=== PATIENT | male | born 1950 | race Caucasian/White ===

== ENCOUNTER 2019-03-11 13:07 | Outpatient (CLI) | payer MEDICARE, OTHER ==
--- NOTE | 2019-03-11 13:55 | RAD ---
RIGHT HIP TWO VIEWS: HISTORY: Right hip pain. FINDINGS: Joint space is preserved. There is mild osteophytosis and subchondral sclerosis. Femoral head conto ur is maintained. No acute fracture or dislocation. IMPRESSION: Very mild osteoarthritic changes of the right hip. POS: [facility]
--- NOTE | 2019-03-11 13:56 | RAD ---
RIGHT KNEE FOUR VIEWS: HISTORY: Unspecified osteoarthritis. Right knee pain. FINDINGS: No fracture, dislocation, or bony destruction is seen. Minimal arthritic changes are noted. No join t effusion is seen. POS: [facility]
== END 2019-03-11 13:08 | disposition home or self-care (01) ==
LOC: BICRAD 13:07
PROVIDERS: ATTEND Internal Medicine
DX: M16.11 Unilateral primary osteoarthritis, right hip (principal); M17.11 Unilateral primary osteoarthritis, right knee

== ENCOUNTER 2020-06-30 19:38 | Inpatient (IN) | payer MEDICARE, OTHER ==
[~2020-06-30 19:38] MED LIST: Iopamidol-370 76% 500 ML 1 ML ONE
[2020-06-30] MEDS ORDERED: Ondansetron ODT 4 MG TAB ONE (20:29)
[2020-06-30 21:06] LABS: Bilirubin Negative (Negative); Blood, Urine Negative (Negative); Clarity Clear (Clear); Glucose, Urine (Dipstick) 100 mg/dL (Negative); Ketone, Urine 100 mg/dL (Negative); Leukocyte Negative Leu/uL (Negative); Nitrite Negative (Negative); Protein, Urine (Dipstick) 20 mg/dL (Neg-Trace); Specific Gravity, Urine 1.018 (1.002-1.036); Urobilinogen Normal mg/dL (Less than 2); pH, Urine 5.5 (5.0-9.0)
[2020-06-30 21:13] LABS: ALT (SGPT) 44 U/L (8-55); AST (SGOT) 37 U/L (5-34); Albumin 4.6 g/dL (3.4-4.8); Alkaline Phosphatase 74 U/L (40-110); Anion Gap 17 mmol/L (10-20); BUN (Urea Nitrogen) 18 mg/dL (8.4-25.7); Bilirubin, Total 1.6 mg/dL (0.2-1.2); Calc. Creatinine Clearance 0 mL/min (70-130); Calcium 9.4 mg/dL (7.8-10.44); Carbon Dioxide 20 mmol/L (23-31); Chloride 109 mmol/L (98-107); Estimated GFR-MDRD 60; Globulin 2.6 g/dL (2.4-3.5); Glucose 219 mg/dL (80-115); Potassium 4.1 mmol/L (3.5-5.1); Protein, Total 7.2 g/dL (5.8-8.1); Sodium 142 mmol/L (136-145)
[2020-06-30 21:17] LABS: #Lymphocytes 0.4 thou/uL (1.20-3.40); #Monocytes 0.5 thou/uL (0.11-0.59); #Neutrophils 13.5 thou/uL (1.40-6.50); %Basophils 0.1 % (0.0-1.0); %Eosinophils 0.2 % (0.0-10.0); %Lymphocytes 2.9 % (21.0-51.0); %Monocytes 3.4 % (0.0-10.0); %Neutrophils 93.6 % (42.0-75.0); Hemoglobin 15.5 g/dL (14.0-18.0); Large Platelets SLIGHT; MDiff Complete? YES; Mean Corpuscular HGB CONC 34.7 g/dL (32.0-36.0); Mean Corpuscular Hemoglobin 32.3 pg (27.0-31.0); Mean Corpuscular Volume 93.3 fL (78.0-98.0); Platelet Count 36 thou/uL (130-400); Platelet Morphology Comment Appears Decreased; RBC Distribution Width 12.1 % (11.5-14.5); Red Blood Cell (RBC) Count 4.78 mill/uL (4.70-6.10); White Blood Cell (WBC) Count 14.4 thou/uL (4.8-10.8)
[2020-07-01] MEDS ORDERED: Ondansetron PF 4 MG/2 ML Vial ONE ×2 (00:13→13:20)
[2020-07-01] MEDS ORDERED: Piperacillin/Tazobactam 4.5 GM VIAL ONE (00:13)
[2020-07-01] MEDS ORDERED: Morphine 4 MG/ML VIAL ONE (00:13)
[2020-07-01 04:05] VITALS: BMI 25.3
[2020-07-01] MEDS ORDERED: Ondansetron PF 4 MG/2 ML Vial IVP PRN ×2 (05:57→18:57)
[2020-07-01] MEDS: D5 1/2 NS w/20 mEq KCL 1,000 ML IV SCH ×3 (06:21→21:36)
[2020-07-01 06:28] LABS: INR-International Normal Ratio 1.1; PTT 26.8 sec (22.9-36.1); Prothrombin Time 14.5 sec (12.0-14.7)
[2020-07-01 06:34] LABS: #Lymphocytes 0.8 thou/uL (1.20-3.40); #Monocytes 1.2 thou/uL (0.11-0.59); #Neutrophils 13.1 thou/uL (1.40-6.50); %Eosinophils 0.1 % (0.0-10.0); %Lymphocytes 5.4 % (21.0-51.0); %Monocytes 7.8 % (0.0-10.0); %Neutrophils 86.7 % (42.0-75.0); Hemoglobin 14.1 g/dL (14.0-18.0); Mean Corpuscular HGB CONC 32.8 g/dL (32.0-36.0); Mean Corpuscular Hemoglobin 30.9 pg (27.0-31.0); Mean Corpuscular Volume 94.1 fL (78.0-98.0); Mean Platelet Volume 11.4 fL (7.4-10.4); Platelet Count 48 thou/uL (130-400); RBC Distribution Width 12.3 % (11.5-14.5); Red Blood Cell (RBC) Count 4.55 mill/uL (4.70-6.10); White Blood Cell (WBC) Count 15.2 thou/uL (4.8-10.8)
[2020-07-01 06:43] LABS: ALT (SGPT) 36 U/L (8-55); AST (SGOT) 26 U/L (5-34); Alkaline Phosphatase 57 U/L (40-110); Anion Gap 14 mmol/L (10-20); BUN (Urea Nitrogen) 17 mg/dL (8.4-25.7); Bilirubin, Total 0.9 mg/dL (0.2-1.2); Calc. Creatinine Clearance 69 mL/min (70-130); Calcium 8.4 mg/dL (7.8-10.44); Carbon Dioxide 21 mmol/L (23-31); Chloride 110 mmol/L (98-107); Estimated GFR-MDRD 67; Globulin 2.3 g/dL (2.4-3.5); Glucose 121 mg/dL (80-115); Potassium 4.1 mmol/L (3.5-5.1); Protein, Total 6.3 g/dL (5.8-8.1); Sodium 141 mmol/L (136-145)
--- NOTE | 2020-07-01 07:40 | CT ---
CT ABODMEN AND PELVIS WITH IV CONTRAST: Date: 06/30/2020 PROVIDED CLINICAL HISTORY: Abdominal pain. FINDINGS: The visualized lung bases are free of significant opacity. The liver, spleen, pancreas, kidneys, and adrenal glands demonstrate no significant abnormality. There is conspicuous gallbladder distention with pericholecystic inflammatory change and a small amou nt of pericholecystic fluid. There is no bowel dilatation, additional inflammatory fat stranding, free fluid, or free air apparent . There is no evidence for appendicitis. Vascular calcifications and atherosclerotic renal plaque are seen involving the abdominal aorta. Fat- containing left inguinal hernia, small. The osseous structures demonstrate no concerning lytic or blastic lesions. IMPRESSION: Findings compatible with acute cholecystitis. POS: [facility]
--- NOTE | 2020-07-01 08:36 | ULT ---
PRELIMINARY REPORT/[facility]/EMERGENCY AFTER HOURS PROCEDURE Receipt of this report by the clinical staff was confirmed with Taylor Yang RN by Nany Driver on Jul 01, 2020 01:21:00 CDT. Addendum electronically signed by Nany Driver on July 01, 2020 1:20:10 AM CDT EXAM: US Abdomen Limited, Right Upper Quadrant. CLINICAL HISTORY: HX: ABD PAIN, SEE NOTES ON LAST IMAGE. THANKS TECHNIQUE: Real-time ultrasound of the right upper quadrant with image documentation. COMPARISON: None provided. FINDINGS: LIVER: Unremarkable. GALLBLADDER: No gallstone. Gallbladder wall thickening is noted at 4.7 mm. No pericholecystic fluid. The patient demonstrated a positive sonographic Smith's sign COMMON BILE DUCT: No dilation. Measures 5.8 mm PANCREAS: Obscured by overlying bowel gas. RIGHT KIDNEY: Unremarkable. No hydronephrosis. Measures 9.6 cm IMPRESSION: Gallbladder wall thickening with a positive sonographic Smith's sign concerning for acalculous nilam cystitis ELECTRONICALLY SIGNED BY: Oren Gregory MD Jul 01, 2020 1:17:04 AM CDT This report is intended for review by the ordering physician only, in accordance of law. If you recei ve this report in error, please call [facility] at [phone]. FINAL REPORT EXAM: US Gallbladder RUQ CLINICAL HISTORY: Right upper quadrant pain.. COMPARISON: None. FINDINGS: Pancreas: Obscured by bowel gas Liver:Hepatic parenchyma has a normal echotexture. No hepatic masses or intrahepatic biliary dilatati on. Gallbladder: No sonographic evidence of cholelithiasis. Gallbladder wall is thickened measuring 0.47 cm. Smith's sign:Positive Portal Vein: Patent. Appropriate directional flow Bile ducts: 0.6 cm common bile duct diameter Right kidney: No hydronephrosis. Right kidney measures 9.7 cm in length. IMPRESSION: 1. Gallbladder wall thickening with positive Smith's sign. Correlate for acalculous cholecystitis. 2. Consider HIDA scan. 3. This report is in agreement with initial report by [facility]. Transcribed Date/Time: 07/01/2020 9:00 AM
[2020-07-01] MEDS ORDERED: EPHEDRINE 25 MG/5 ML SYRINGE ONE (13:20)
[2020-07-01] MEDS ORDERED: Glycopyrrolate 0.2 MG/ML 5 ML SYRINGE ONE (13:20)
[2020-07-01] MEDS ORDERED: Dexamethasone 20 MG/5 ML VIAL ONE (13:20)
[2020-07-01] MEDS ORDERED: Rocuronium Bromide 10 MG/ML (10ML VIAL) ONE (13:20)
[2020-07-01] MEDS: Piperacillin/Tazobactam 3.375 GM in Sodium Chloride 0.9% 100 ML IVPB SCH ×2 (13:20→19:58)
[2020-07-01] MEDS ORDERED: PROPOFOL 200 MG/20 ML VIAL ONE (13:20)
[2020-07-01] MEDS ORDERED: Lidocaine 1% PF 5 ML VIAL ONE (13:20)
[2020-07-01 13:46] LABS: SARS-CoV-2 MS2 Positive; SARS-CoV-2 N Gene Negative; SARS-CoV-2 S Gene Negative; SARS-CoV-2 by NAA Not Detected (NotDetected); SARS-CoV-2 orf1ab Negative
--- NOTE | 2020-07-01 14:03 | HP ---
CHIEF COMPLAINT: Abdominal pain. HISTORY OF PRESENT ILLNESS: Mr. Kulkanri is a 69-year-old man who presented to the emergency room with epigastric pain and nausea beginning yesterday morning. He states that about an hour after eating breakfast, he had pain across the top of his abdomen and multiple episodes of nonbloody, [id number] emesis. The pain has been persistent. No exacerbating or alleviating factors are reported. He denies any shortness of breath, diarrhea or constipation. Has not had any fevers, chills, jaundice or icterus. He came to the emergency room where he was found to have diffuse abdominal tenderness, worse in the right upper quadrant and epigastrium. He underwent a CT of the abdomen and pelvis, which showed distention of the gallbladder with some pericholecystic fluid, but no bile duct dilatation. On ultrasound, did not show any gallstones, but the gallbladder wall was noted to be thickened and he had a positive sonographic Smith sign. He was placed on IV antibiotics and admitted for short interval cholecystectomy. PAST MEDICAL HISTORY: Hyperlipidemia, atrial flutter, chronic thrombocytopenia, hypertension, hypothyroidism, and BPH. He does not have any history of purpura or bleeding related to his thrombocytopenia and this is just being followed by Dr. Arambula. PAST SURGICAL HISTORY: Bilateral inguinal hernia repairs, but no abdominal surgeries. He has also had his tonsils out and back procedure. SOCIAL HISTORY: The patient quit smoking many years ago. Does not drink or use illicit drugs. ALLERGIES: HE HAS NO KNOWN DRUG ALLERGIES. OUTPATIENT MEDICATIONS: Include; 1. Omeprazole 20 mg p.o. daily. 2. Tamsulosin 0.4 mg p.o. daily. 3. Synthroid 25 mcg p.o. daily. 4. Metoprolol 12.5 mg p.o. b.i.d. 5. Meclizine 25 mg p.o. daily. 6. Finasteride 5 mg p.o. daily. 7. Crestor 10 mg p.o. daily. 8. Lexapro 10 mg p.o. daily. REVIEW OF SYSTEMS: Ten system review of systems is negative except per HPI. He specifically denies chest pain or shortness of breath. CT and ultrasound images are reviewed and I agree with the written report. LABORATORY DATA: White count is elevated at 15.2, hematocrit 42.8, platelet count 48, which is close to his baseline. Coags are normal. Electrolytes are unremarkable. His total bilirubin was initially elevated at 1.6, but has come down to 0.9. AST was mildly elevated at 37, but has come down to 26. The rest of his LFTs were normal and his lipase was low. PHYSICAL EXAMINATION: VITAL SIGNS: The patient has been afebrile since admission. Heart rate 63, respirations 16, 97% saturated on room air, blood pressure 107/64. GENERAL: Reveals a healthy-appearing gentleman in no acute distress. He is not flushed or toxic in appearance. He is not jaundiced or icteric. HEENT: Unremarkable. Pupils are equal. Extraocular movements are intact and facial movements are symmetric. NECK: Supple without lymphadenopathy or thyroid nodules. HEART: Regular in its rate and rhythm without murmurs, rubs, or gallops. LUNGS: Clear to auscultation bilaterally. ABDOMEN: Soft and nondistended. He is tender to palpation in the right upper quadrant greater than epigastrium, but does not exhibit rigidity, rebound, or guarding. He has a small reducible umbilical hernia which is nontender and has a fingertip sized fascial defect. EXTREMITIES: Warm and well perfused without edema. No ulcerations or ischemia. NEUROLOGIC: No focal deficits. PSYCHIATRIC: Alert, oriented, and appropriate with a normal affect. ASSESSMENT: Acalculous cholecystitis with mild elevation in bilirubin on admission, which has come down to normal. I cannot discount the possibility of a small stone, which he has passed. I have recommended laparoscopic cholecystectomy with intraoperative cholangiogram to remove the gallbladder and evaluate the common bile duct. If there is any obstruction of the common bile duct, he might require ERCP postoperatively. The inherent risks of laparoscopic cholecystectomy were discussed with the patient. These include, but are not limited to, bleeding, infection, risks of anesthesia, damage to nearby structures including bowel, liver, and bile duct, need for other procedures and need for open surgery. He understands and accepts these risks and wishes to proceed. All of his questions were answered. Job ID: [id number]
[2020-07-01] MEDS ORDERED: Iothalamate Meglumine 60% 50 ML VIAL FS ONE (15:29)
[2020-07-01] MEDS ORDERED: Lidocaine 2% w/Epinephrine 1:200K 20 ML VIAL ONE (15:29)
[2020-07-01] MEDS ORDERED: Bupivacaine 0.25% HCL 30 ML VIAL ONE (15:29)
[2020-07-01] MEDS ORDERED: Lidocaine 1% w/Epinephrine 1:100K 20 ML VIAL ONE (15:29)
[2020-07-01] MEDS ORDERED: Fentanyl 100 MCG/2 ML VIAL ONE ×2 (15:41→18:10)
[2020-07-01] MEDS ORDERED: Piperacillin/Tazobactam 3.375 GM VIAL ONE (17:39)
[2020-07-01] MEDS ORDERED: Promethazine HCl 25 MG/ML VIAL SLOW IVP PRN (18:43)
[2020-07-01] MEDS ORDERED: Ondansetron HCl/PF 4 MG/2 ML Vial IVP PRN (18:43)
[2020-07-01] MEDS ORDERED: Promethazine HCl 25 MG/ML VIAL IM PRN (18:43)
[2020-07-01] MEDS ORDERED: HYDROcodone/Acetaminophen 5/325 mg Tablet PO PRN ×2 (18:56)
[2020-07-01] MEDS ORDERED: Morphine 4 MG/ML VIAL SLOW IVP PRN (18:56)
[2020-07-01] MEDS ORDERED: traMADol HCl 50 MG TAB PO PRN ×2 (18:56)
--- NOTE | 2020-07-01 20:13 | PDOC.OP ---
Operative Note - Operative Note Operative Note: DATE OF PROCEDURE: 07/01/2020 PROCEDURES: Laparoscopic cholecystectomy with intraoperative cholangiogram and repair of umbilical hernia. SURGEON: Ruby Yepez M.D. PREOPERATIVE DIAGNOSIS: Acalculous cholecystitis, umbilical hernia POSTOPERATIVE DIAGNOSIS: Acalculous cholecystitis, gangrenous, and umbilical hernia FINDINGS: Gangrenous gallbladder with acute omental adhesions. Very small cystic duct. Cholangiogram with some irregularity of the distal common bile duct but no filling defect or obstruction to flow. Small umbilical hernia containing preperitoneal fat only. HISTORY: Patient with signs and symptoms of acute cholecystitis.. Laparoscopic cholecystectomy was recommended for symptomatic relief and prevention of future episodes. Intraoperative cholangiogram was also recommended due to transient elevation of bilirubin. PROCEDURE: After informed consent was obtained and appropriate preoperative antibiotics were administered, the patient was taken to the operating room and placed in the supine position and general endotracheal anesthesia was administered. The stomach was decompressed with an OG tube and the abdomen was prepped and draped in standard sterile fashion. Local anesthesia was infused to the skin and subcutaneous tissues at the umbilical level. A transverse skin incision was made. Dissection was carried down to the umbilical hernia which was dissected free circumferentially to the level of the fascia. This was found to contain preperitoneal fat only which was excised. Stay sutures were placed in the fascia. The fascia was elevated and a Veress needle was placed into the abdominal cavity without difficulty. Opening pressure was less than 5 and carbon dioxide gas easily insufflated to an intra-abdominal pressure of 15, which the patient tolerated well. The Veress needle was withdrawn and a [place] port advanced under direct vision. The abdominal cavity was carefully examined. There was no evidence of Veress needle or of trocar injury. Local anesthesia was infused to the skin and subcutaneous tissues at the epigastric, right upper quadrant, and right lateral abdominal sites and trocars were placed under direct vision of the laparoscope. The gallbladder was noted to be gangrenous in appearance. The fundus of the gallbladder was grasped and retracted superiorly. Acute omental adhesions were stripped off of the gallbladder through the avascular plane exposing the infundibulum. The infundibulum was grasped and retracted laterally. The serosa was stripped inferiorly at the level of the neck of the gallbladder exposing the cystic duct and artery which were traced clearly to their insertion in the gallbladder. These were dissected free circumferentially and the cystic duct was clipped at the level of the neck of the gallbladder. The cystic artery was clipped but not divided. An incision was made in the cystic duct inferior to the clip and the cystic duct was palpated with no stones palpable. Clear bile was seen to flow from the cystic duct incision. A cholangiogram catheter was introduced and placed into the cystic duct and secured with a clip. A cholangiogram was obtained which showed an adequate length of cystic duct. There was normal filling of the common bile duct but very little flow of contrast into the duodenum. Glucagon was administered and the duct was flushed with saline. A second cholangiogram was obtained which showed free flow of contrast into the duodenum. The distal common bile duct was very narrow and somewhat irregular but there was no apparent filling defect or obstruction to flow. There was normal retrograde flow into the common hepatic duct beyond the level of the bifurcation without filling defects. The cholangiogram catheter was removed and the cystic duct clipped below the incision in the cystic duct. The cystic duct was divided between these clips and the previously placed clip. The cystic artery was clipped and divided between the previously placed clips. The gallbladder was then dissected free of the gallbladder bed using hook electrocautery. Prior to complete removal of the gallbladder from the gallbladder bed, the area of the cystic duct and artery stumps was examined. The clips were in good position completely across these structures and there was no bleeding and no leakage of bile. The gallbladder was then placed into an EndoCatch bag and drawn out through the epigastric incision. The epigastric trocar was replaced and the operative site easily irrigated to clear. There was no significant bleeding or spillage of bile, but due to the heavily inflamed nature of the gangrenous gallbladder and the patient's history of thrombocytopenia Jono was placed to the gallbladder bed as a precaution. The epigastric trocar was removed and the fascia closed under direct laparoscopic vision with a 0 Vicryl suture on a GraNee needle in a [id number] manner with excellent technical result. The right upper quadrant and right lateral abdominal trocars were removed and hemostasis verified. Carbon dioxide gas was allowed to desufflate through the umbilical trocar which was then removed. The fascia at the umbilicus was closed with the previously placed stay sutures with excellent technical result. Additional local anesthesia was infused for postoperative pain control and the skin incisions were closed with 4-0 subcuticular Monocryl sutures and Dermabond dressings were placed. The patient was extubated and taken to the recovery room in good condition. There were no complications. ESTIMATED BLOOD LOSS: Minimal. SPECIMEN : Gallbladder and contents.
[2020-07-01] MEDS: Morphine 2 MG/ML VIAL SLOW IVP PRN (21:35)
[2020-07-02] MEDS: Piperacillin/Tazobactam 3.375 GM in Sodium Chloride 0.9% 100 ML IVPB SCH ×3 (00:36→15:12)
[2020-07-02 03:58] LABS: #Lymphocytes 0.3 thou/uL (1.20-3.40); #Monocytes 0.6 thou/uL (0.11-0.59); %Basophils 0.1 % (0.0-1.0); %Eosinophils 0.1 % (0.0-10.0); %Lymphocytes 3.1 % (21.0-51.0); %Monocytes 5.9 % (0.0-10.0); %Neutrophils 90.8 % (42.0-75.0); Hemoglobin 13.8 g/dL (14.0-18.0); Mean Corpuscular HGB CONC 33.3 g/dL (32.0-36.0); Mean Corpuscular Hemoglobin 31.5 pg (27.0-31.0); Mean Corpuscular Volume 94.6 fL (78.0-98.0); Mean Platelet Volume 10.7 fL (7.4-10.4); Platelet Count 66 thou/uL (130-400); RBC Distribution Width 11.9 % (11.5-14.5); Red Blood Cell (RBC) Count 4.37 mill/uL (4.70-6.10); White Blood Cell (WBC) Count 9.9 thou/uL (4.8-10.8)
[2020-07-02] MEDS: Morphine 2 MG/ML VIAL SLOW IVP PRN (06:14)
[2020-07-02] MEDS: D5 1/2 NS w/20 mEq KCL 1,000 ML IV SCH ×2 (06:15→15:36)
[2020-07-02 07:04] LABS: ALT (SGPT) 329 U/L (8-55); AST (SGOT) 282 U/L (5-34); Albumin 3.8 g/dL (3.4-4.8); Alkaline Phosphatase 91 U/L (40-110); Anion Gap 12 mmol/L (10-20); BUN (Urea Nitrogen) 14 mg/dL (8.4-25.7); Bilirubin, Total 2.3 mg/dL (0.2-1.2); Calc. Creatinine Clearance 68 mL/min (70-130); Calcium 8.5 mg/dL (7.8-10.44); Carbon Dioxide 21 mmol/L (23-31); Chloride 109 mmol/L (98-107); Estimated GFR-MDRD 65; Globulin 2.6 g/dL (2.4-3.5); Glucose 191 mg/dL (80-115); Potassium 4.3 mmol/L (3.5-5.1); Protein, Total 6.4 g/dL (5.8-8.1); Sodium 138 mmol/L (136-145)
--- NOTE | 2020-07-02 07:55 | RAD ---
INTRAOPERATIVE CHOLANGIOGRAM: DATE: 07/01/2020. PROVIDED CLINICAL HISTORY: Cholecystectomy. FINDINGS: Spot fluoroscopic images of the right upper quadrant demonstrate opacification of the normal-appearin g biliary with contrast opacifying the duodenum. IMPRESSION: As above. POS: [facility]
[2020-07-02 09:22] VITALS: BP 134/60; TEMP 98.7
[2020-07-02] MEDS ORDERED: Finasteride 5 MG TAB PO SCH (11:15)
[2020-07-02] MEDS ORDERED: Escitalopram Oxalate 10 mg Tablet PO SCH (12:00)
--- NOTE | 2020-07-02 13:04 | PDISCHARGE ---
Discharge - Disposition Disposition: HOME - Ambulatory Orders Prescriptions: traMADol HCl [Ultram] 100 mg PO Q4H PRN #10 tab PRN Reason: Moderate Pain (4-5) traMADol HCl [Ultram] 50 mg PO Q4H PRN #10 tab PRN Reason: Mild Pain (1-3) - Patient Instructions - Referrals and PCP Follow-Up Referrals and PCP Follow-Up: Margarette Hansen MD [Primary Care Provider] - Beto Fuchs MD [Active] - 7 Days Ruby Yepez MD [Active] - 14 Days - Activity Instructions Activity:: Activity as Tolerated, Other (No heavy lifting (greater than 20 pounds) for 2 weeks) - Nourishment Instructions Nourishment:: Heart Healthy Diet - Therapy Instructions Therapies:: Not Applicable - Equipment/Supply Instructions Equipment/Supplies:: Ferreira Care - IV Therapy Instructions IV Therapy:: Not Applicable
--- NOTE | 2020-07-02 13:07 | PDOC.GSPN ---
Surgery Progress Note: Subj - Subjective Narrative: Patient has only minimal postoperative tenderness. He is tolerating his diet without nausea or worsening pain. His main concern this morning is that he feels like he is having trouble emptying his bladder. He did miss a couple doses of his Proscar and Flomax due to being ill with cholecystitis, although these and most of his other home medications were reordered today. He is not having any pain related to his bladder but just feels like he does not completely empty. Abdomen is soft and nondistended. Minimal ann-incisional tenderness especially at the epigastric incision. Incisions look good. Vital signs are okay. White count is come down to normal. Assessment/plan: Acalculous cholecystitis with gangrenous gallbladder status post laparoscopic cholecystectomy with cholangiogram doing well. LFTs are slightly up today but this is likely due to surgery. He did not have any filling defects in his bile duct and is tolerating his diet. We will plan to recheck these as an outpatient. Patient has symptoms of urinary retention so I have asked the nurse to do a bladder scan and place a Ferreira catheter if he has greater than [address] Fuchs of urology and can follow-up with him for trial of voiding if a Ferreira needs to be placed. He is to continue to take his home medications as prescribed including his Proscar and Flomax, and minimize narcotic usage. He has not required any pain medications since his operation and can likely be managed with Tylenol and ibuprofen alone, but I did give him a prescription for tramadol if this is not adequate for pain control. I will plan to see him back in my office in 2 weeks time with repeat labs. Surgery Progress Note: Obj - Vital signs Vital signs: Vital Signs - Most Recent Temp Pulse Resp BP Pulse Ox 98.7 F 59 L 18 134/60 97 07/02/20 08:00 07/02/20 08:00 07/02/20 08:00 07/02/20 08:00 07/02/20 08:00 Surgery Progress Note: Results - Labs Result Diagrams: 07/02/20 03:31 07/02/20 03:31 Lab results: Laboratory Results - last 24 hr 07/02/20 07/02/20 03:31 03:31 WBC 9.9 RBC 4.37 L Hgb 13.8 L Hct 41.4 L MCV 94.6 MCH 31.5 H MCHC 33.3 RDW 11.9 Plt Count 66 L MPV 10.7 H Neutrophils % 90.8 H Lymphocytes % 3.1 L Monocytes % 5.9 Eosinophils % 0.1 Basophils % 0.1 Neutrophils # 9.0 H Lymphocytes # 0.3 L Monocytes # 0.6 H Eosinophils # 0.0 Basophils # 0.0 Sodium 138 Potassium 4.3 Chloride 109 H Carbon Dioxide 21 L Anion Gap 12 BUN 14 Creatinine 1.11 Estimated GFR (MDRD) 65 Glucose 191 H Calcium 8.5 Total Bilirubin 2.3 H AST 282 H ALT 329 H Alkaline Phosphatase 91 Serum Total Protein 6.4 Albumin 3.8 Globulin 2.6 Albumin/Globulin Ratio 1.5
[2020-07-02] MEDS ORDERED: Lidocaine 2% Jelly 5 ML TUBE TOP SCH (15:00)
[2020-07-02] MEDS ORDERED: Tamsulosin HCl 0.4 MG CAP PO SCH (21:00)
[2020-07-02] MEDS ORDERED: CRANBERRY PO SCH (21:00)
[2020-07-02] MEDS ORDERED: Metoprolol Tartrate 25 MG TAB PO SCH (21:00)
--- NOTE | 2020-07-02 22:51 | CON ---
DATE OF CONSULTATION: 07/02/2020 HISTORY OF PRESENT ILLNESS: This is a 69-year-old male, I have known him for a number of years, seen him in my office off and on since 2009. He has lower urinary tract symptoms. He is on Flomax and finasteride. He has been on the finasteride since March of 2017. He had a UTI in 2016, that was Ferreira related. He has had history of microscopic hematuria and he has had ultrasound and cysto, both had been clear, that was back in 2009. He has had a labile PSA, though his most recent PSAs have been quite low. He has gotten a left adrenal adenoma, and he has had a spermatocele. He came in, I guess, yesterday with pain and was found to have acute cholecystitis and underwent a laparoscopic cholecystectomy by Dr. Yepez. He had trouble urinating last night and today, voiding small amounts. As the day went on, he has gotten uncomfortable and has been able to go only about an ounce at a time. He has had two bladder scans done, one that showed over 800 and one over 700 mL, he is uncomfortable. His vital signs are stable. He is taking some [place] still. He is about ready to go home and is planning on only going home on some tramadol. The nurses tried to place a catheter, but were unsuccessful. They had difficulty getting the meatus and this was because he has a hypospadiac meatus. It is just a mild distal hypospadias. PHYSICAL EXAMINATION: ABDOMEN: Tender, this is probably somewhat related to his surgery, but also to distended bladder. He has gotten punctures from his laparoscopy site. : His penis is circumcised. The meatus is slightly hypospadiac. Testicles descended. No mass. No tenderness. RECTAL: Did not do a rectal exam. I went ahead and prepped him with Betadine, used 2% xylocaine jelly topically per urethra. We were able to pass a [place] Ferreira catheter without any difficulties. Urine is clear. 10 mL placed in the balloon. He will go home on this. I will see him in the office either or Thursday. He is to call tomorrow morning to set that up. He will stay on his Flomax and his finasteride. I would also like him to take one Macrodantin 100 mg a day while his catheter is in. Job ID: [id number]
[2020-07-03] MEDS ORDERED: Levothyroxine Sodium 25 MCG TAB PO SCH (06:00)
[2020-07-03] MEDS ORDERED: Finasteride 5 MG TAB PO SCH (09:00)
[2020-07-03] MEDS ORDERED: Rosuvastatin 10 MG TAB PO SCH (09:00)
== END 2020-07-02 18:30 | disposition home or self-care (01) | DRG 419 ==
LOC: ERS 19:38 → ONC 07-01 00:39
PROVIDERS: ADMIT Surgery; ATTEND Surgery
PROC: 0FT44ZZ Resection of Gallbladder, Percutaneous Endoscopic Approach (ICD-10-PCS; principal; 2020-07-01)
PROC: 0WQF4ZZ Repair Abdominal Wall, Percutaneous Endoscopic Approach (ICD-10-PCS; 2020-07-01)
PROC: BF101ZZ Fluoroscopy of Bile Ducts using Low Osmolar Contrast (ICD-10-PCS; 2020-07-01)
DX: K81.0 Acute cholecystitis (principal); K82.A1 Gangrene of gallbladder in cholecystitis; D69.6 Thrombocytopenia, unspecified; E78.5 Hyperlipidemia, unspecified; I10 Essential (primary) hypertension; K42.9 Umbilical hernia without obstruction or gangrene; N40.0 Benign prostatic hyperplasia without lower urinary tract symptoms; E03.9 Hypothyroidism, unspecified; Z98.890 Other specified postprocedural states; Z87.891 Personal history of nicotine dependence; Z79.899 Other long term (current) drug therapy; R79.89 Other specified abnormal findings of blood chemistry; Q54.1 Hypospadias, penile
CPT/HCPCS: 36415; 36430; 47532; 74177; 76705; 80053; 81003; 83690; 85025; 85610; 85730; 86850; 86900; 86901; 87635; 88304; 93005; 96361; 96365; 96375; J1100; J1610; J2270; J2405; J2543; J2704; J3010; J3480; J3490; P9035; Q0162; Q9967; S0020; U0003

== ENCOUNTER 2021-06-24 13:44 | Outpatient (CLI) | payer MEDICARE, OTHER ==
[2021-06-25 07:43] LABS: SARS-CoV-2 PCR by NAA Not Detected (NotDetected)
== END 2021-06-24 13:45 | disposition home or self-care (01) ==
LOC: LABBT 13:44
PROVIDERS: ATTEND Internal Medicine Gastroenterology
DX: Z01.812 Encounter for preprocedural laboratory examination (principal); Z20.822 Contact with and (suspected) exposure to COVID-19
CPT/HCPCS: U0003; U0005

== ENCOUNTER 2021-06-27 12:23 | Day surgery (SDC) | payer MEDICARE, OTHER ==
[2021-06-26 15:00] VITALS: BMI 24.0
[2021-06-27] MEDS ORDERED: Indomethacin 50 MG SUPP ONE (13:23)
[2021-06-27] MEDS ORDERED: Iothalamate Meglumine 60% 30 ML VIAL FS ONE (13:23)
[2021-06-27] MEDS ORDERED: cefTRIAXone\\ROCEPHIN 2 GM VIAL ONE (13:31)
[2021-06-27] MEDS ORDERED: Sodium Chloride 0.9% 100 ML ONE (13:31)
[2021-06-27] MEDS ORDERED: Fentanyl 100 MCG/2 ML VIAL ONE (13:40)
[2021-06-27] MEDS ORDERED: Rocuronium Bromide 10 MG/ML (10ML VIAL) ONE (13:55)
[2021-06-27] MEDS ORDERED: Ondansetron PF 4 MG/2 ML Vial ONE (13:55)
[2021-06-27] MEDS ORDERED: Glycopyrrolate 0.2 MG/ML 5 ML SYRINGE ONE (13:55)
[2021-06-27] MEDS ORDERED: Lidocaine 1% PF 5 ML VIAL ONE (13:55)
[2021-06-27] MEDS ORDERED: PROPOFOL 200 MG/20 ML VIAL ONE (13:55)
[2021-06-27] MEDS ORDERED: Dexamethasone 20 MG/5 ML VIAL ONE (13:55)
== END 2021-06-27 17:30 | disposition home or self-care (01) ==
LOC: SDC 12:23
PROVIDERS: ATTEND Internal Medicine Gastroenterology
PROC: 0FC98ZZ Extirpation of Matter from Common Bile Duct, Via Natural or Artificial Opening Endoscopic (ICD-10-PCS; principal; 2021-06-27)
DX: K80.50 Calculus of bile duct without cholangitis or cholecystitis without obstruction (principal); K83.8 Other specified diseases of biliary tract; K21.9 Gastro-esophageal reflux disease without esophagitis; M19.90 Unspecified osteoarthritis, unspecified site; E78.00 Pure hypercholesterolemia, unspecified; G47.30 Sleep apnea, unspecified; I10 Essential (primary) hypertension; E78.5 Hyperlipidemia, unspecified; E03.9 Hypothyroidism, unspecified; N40.0 Benign prostatic hyperplasia without lower urinary tract symptoms; Z87.891 Personal history of nicotine dependence; Z79.899 Other long term (current) drug therapy
CPT/HCPCS: 74330; 93005; 93010; J0696; J1100; J2405; J2704; J3010; J3490

== ENCOUNTER 2025-07-27 08:29 | Outpatient (CLI) | payer MEDICARE, OTHER | END 2025-07-27 08:30 | disposition home or self-care (01) | LOC: RAD 08:29 | PROVIDERS: ATTEND Internal Medicine | DX: R06.00 Dyspnea, unspecified (principal) | CPT/HCPCS: 71046 ==

== ENCOUNTER 2025-08-15 12:13 | Outpatient (CLI) | payer MEDICARE, OTHER | END 2025-08-15 12:14 | disposition home or self-care (01) | LOC: BICRAD 12:13 | PROVIDERS: ATTEND Internal Medicine | DX: R10.84 Generalized abdominal pain (principal) | CPT/HCPCS: 74019 ==